=== PATIENT | male | born 1975 | race Caucasian/White ===

== ENCOUNTER 2017-07-20 10:13 | Day surgery (SDC) | payer OTHER, SELFPAY ==
[2017-07-20] VITALS (10 sets, daily range): BP systolic 118–146; BP diastolic 81–93; PULSE 53–92; RESP 11–16; TEMP 36.6–36.8; O2SAT 91–100; BMI 25.6
--- NOTE | 2017-07-20 10:25 | DI.RAD.S_ITS ---
PROCEDURE: XR FINGER LT MIN 2V INDICATIONS: left 2nd digit (pointer!) Drill bit vs finger TECHNIQUE: AP hand, 2 views of the left finger(s) acquired. COMPARISON: None. FINDINGS: Bones: Displaced fracture of distal phalanx of the left index finger. There is palmar angulation of the distal fragment. Soft tissues: Associated soft tissue swelling. IMPRESSION: Distal phalanx fracture of the left index finger Dictated by: Harvey Pace M.D. on 07/20/2017 at 11:12 Approved by: Harvey Pace M.D. on 07/20/2017 at 11:13
[2017-07-20] MEDS: TET,DIPH,PERTUSS(ACELL),VAC/PF 0.5 ML SYRINGE IM (10:58)
--- NOTE | 2017-07-20 11:48 | ED_ITS ---
HPI - Skin/Abscess/Foreign Bdy General Chief complaint: Skin/Abscess/Foreign Body Stated complaint: Pt states cut left index finger Time Seen by Provider: 07/20/17 10:20 Source: patient Mode of arrival: ambulatory Limitations: no limitations History of Present Illness HPI narrative: Healthy 41-year-old male presents to the emergency department with injury to left index finger last night at 10:30 p.m. while using a drill press. His gloved finger got caught in a rotating piece of hardware and injured while rotating peaceful wrapped it around a clamp. His tetanus will be updated today. He attempted to clean it at home but has significant pain. He had breakfast at 6:45 a.m. this morning and coffee on the way to the emergency department Onset (ago): hour(s) Tetanus up to date: no Location: LUE Severity: moderate Quality: stabbing and aching Pain Consistency: constant Relieving factors: immobilization Exacerbating factors: movement Context: none Associated symptoms: denies other symptoms Treatments prior to arrival: bandages Related Data Home Medications Medication Instructions Recorded Confirmed mirtazapine [Remeron] 15 mg PO BEDTIME PRN 07/20/17 07/20/17 tadalafil 10 mg PO DAILY 07/20/17 07/20/17 venlafaxine [Effexor XR] 112.5 mg PO DAILY 07/20/17 07/20/17 Previous Rx's Medication Instructions Recorded cephalexin [Keflex] 500 mg PO QID #40 cap 07/20/17 hydrocodone-acetaminophen [[place]] 1 tab PO Q4H PRN #14 tab 07/20/17 Allergies Allergy/AdvReac Type Severity Reaction Status Date / Time No Known Drug Allergies Allergy Verified 07/20/17 10:19 Review of Systems Review of Systems All systems reviewed & are unremarkable except as noted in HPI and below Constitutional Denies chills, Denies fever(s), Denies lethargy and Denies weakness Eyes Denies change in vision, Denies eye discharge, Denies irritation and Denies loss of vision ENT Ears, Nose, Mouth, and Throat: Denies change in voice, Denies neck pain and Denies sore throat Cardiovascular Denies chest pain, Denies irregular heart rhythm, Denies lightheadedness, Denies palpitations, Denies dyspnea, Denies dyspnea on exertion and Denies orthopnea Respiratory Denies cough, Denies dyspnea, Denies dyspnea on exertion and Denies wheezing Gastrointestinal Gastrointestinal: Denies abdominal pain, Denies change in bowel habits, Denies diarrhea, Denies nausea and Denies vomiting Genitourinary Denies hematuria, Denies flank pain, Denies urinary incontinence and Denies urinary urgency Musculoskeletal Reports joint swelling, Reports limited range of motion and Denies neck pain Integumentary/Breasts Denies pruritus, Denies erythema, Denies rash and Reports wounds Neurologic Denies confusion, Denies loss of vision and Denies weakness Psychiatric Denies anxiety, Denies confusion, Denies depression, Denies homicidal ideation and Denies suicidal ideation Endocrine Denies palpitations Hematologic/Lymphatic Denies easy bruising Allergic/Immunologic Denies wheezing PFSH Family History: Reviewed 07/20/17 by Enmanuel Cotton MD Social History Smoking Status: Former smoker Exam Narrative Exam Narrative: 41-year-old male in mild distress, clutching his left index finger Initial Vital Signs Initial Vital Signs: Vital Signs Temperature 97.9 F 07/20/17 10:16 Pulse Rate 80 07/20/17 10:16 Respiratory Rate 14 07/20/17 10:16 Blood Pressure 134/93 H 07/20/17 10:16 Pulse Oximetry 97 07/20/17 10:16 Const General: cooperative and well developed Nutritional Appearance: well nourished Orientation: alert, awake, oriented x3 and not confused Resp Effort & Inspection: normal respiratory effort, able to speak in complete sentences, no respiratory distress and no use of accessory muscles Auscultation: clear to auscultation bilaterally, no rales, no rhonchi and no wheezes GI Inspection: non-distended Palpation: soft, no hepatosplenomegaly, No guarding, No pulsatile mass and No tender Auscultation: normal bowel sounds Back/Spine/Pelvis Back: No CVA tenderness Cervical Spine: cervical ROM normal and No pain with cervical ROM Thoracic/Lumbar Spine: thoracic and lumbar spine normal to inspection Skin Trauma: laceration (On dorsal aspect of left index finger just distal to the DIP ) Neuro General: alert, awake and oriented x3 Cognition: normal cognition Motor: muscle tone normal throughout Sensory Exam: no sensory deficits noted Extrem Left upper extremity: hand (Obvious injury with deformity to left index finger. Laceration on dorsal aspect of left index finger just distal to the D IP with nail fold involvement. His fingers stuck in flexion distal to the D IP with no ability to passively or actively reduce the deformity. Sensation is intact) Course Orders Ordered: ED Orders 07/20/17 10:25 XR finger LT min 2V Stat 07/20/17 12:19 Basic Metabolic Panel Stat Complete Blood Count AUTO DIFF Stat Hydrocodone Bitart/Acetaminophen ([place] 5/325) 1 tab PO Q30MIN PRN PRN Reason: Mild or moderate pain Fentanyl (Sublimaze) 100 mcg IV Q5MIN PRN PRN Reason: Pain, Severe Lactated Ringer's (Lactated Ringers) 1,000 mls @ 42 mls/hr IV CONT ORLIN Last Infusion: 07/20/17 16:40 Dose: 0 mls/hr Admin: 07/20/17 14:00 Dose: 42 mls/hr Metoclopramide HCl (Reglan) 10 mg IV NOW PRN PRN Reason: Nausea And Vomiting Ondansetron HCl (Zofran) 4 mg IV NOW PRN PRN Reason: Nausea And Vomiting Discontinued Medications Bupivacaine HCl (Sensorcaine 0.5% (Pf)) 30 ml INJ NOW ONE Stop: 07/20/17 15:00 Last Admin: 07/20/17 14:59 Dose: 8 ml Diphtheria/Tetanus/Acell Pertussis (Adacel) 0.5 ml IM .ONCE ONE Stop: 07/20/17 10:23 Last Admin: 07/20/17 10:58 Dose: 0.5 ml Cefazolin Sodium/Dextrose (Ancef) 1 gm in 50 mls @ 100 mls/hr IV NOW ONE Stop: 07/20/17 12:44 Last Infusion: 07/20/17 13:15 Dose: 0 mls/hr Admin: 07/20/17 12:51 Dose: 100 mls/hr Cefazolin Sodium/Dextrose (Ancef) 2 gm in 100 mls @ 200 mls/hr IV NOW ONE Stop: 07/20/17 15:10 Last Infusion: 07/20/17 14:52 Dose: 0 mls/hr Admin: 07/20/17 14:41 Dose: 200 mls/hr Reevaluation(s) Reevaluation #1: Digital block performed on the left index finger after neurovascular status assessed and documented. He has finger was soaked and then scrubbed with chlorhexidine. There is no visualization of extensor tendon. I am unable to reduce the deformity. Call to Orthopedics on-call for bedside evaluation Time: 11:48 Vital Signs - 8 hr 07/20/17 10:16 07/20/17 12:40 07/20/17 14:00 Temperature 97.9 F 98.2 F 97.9 F Pulse Rate 80 53 L 61 Respiratory Rate 14 15 16 Blood Pressure 134/93 H 129/88 H Blood Pressure [Right Arm] 122/86 H Pulse Oximetry 97 98 99 07/20/17 15:41 07/20/17 15:46 07/20/17 15:51 Temperature 98.1 F Pulse Rate 92 H 81 62 Respiratory Rate 11 L 13 14 Blood Pressure 146/81 H 120/84 H 118/81 H Blood Pressure [Right Arm] Pulse Oximetry 91 97 95 07/20/17 15:56 07/20/17 16:07 07/20/17 16:18 Temperature 97.9 F 98.1 F Pulse Rate 71 68 64 Respiratory Rate 16 16 16 Blood Pressure 120/85 H 119/86 H 128/88 H Blood Pressure [Right Arm] Pulse Oximetry 95 97 07/20/17 16:45 Temperature 98.1 F Pulse Rate 66 Respiratory Rate 14 Blood Pressure 130/89 H Blood Pressure [Right Arm] Pulse Oximetry 100 MDM - Skin/Abscess/Foreign Bdy Lab Data Result diagrams: 07/20/17 12:19 07/20/17 12:19 Lab Results 07/20/17 07/20/17 Range/Units 12:19 12:19 WBC 7.3 (4.5-11.0) X10^3/uL RBC 4.79 (4.5-5.9) X10^6/uL Hgb 15.1 (13.5-17.5) g/dL Hct 42.7 (41-53) % MCV 89.1 (80-100) fL MCH 31.4 (26-34) PG MCHC 35.3 (30-36) % RDW 12.7 (11.6-14.8) % Plt Count 189 (150-400) X10^3/uL Neut % (Auto) 70.3 (50-75) % Lymph % (Auto) 15.6 L (25-40) % Wharton % (Auto) 11.7 (3-14) % Eos % (Auto) 1.8 L (2-4) % Baso % (Auto) 0.6 (0-2) % Neut # (Auto) 5100 (5387-3551) /uL Sodium 141 (137-145) mmol/L Potassium 4.3 (3.4-5.1) mmol/L Chloride 103 (98-107) mmol/L Carbon Dioxide 27 (22-32) mmol/L BUN 16 (9-20) mg/dL Creatinine 0.80 (0.66-1.25) mg/dL Estimated GFR > 60.0 (>60) mL/min BUN/Creatinine Ratio 20.0 (6-22) Glucose 89 (70-100) mg/dL Calcium 9.4 (8.4-10.2) mg/dL Imaging Data Finger Xray: Radiologist's impression: PROCEDURE: XR FINGER LT MIN 2V INDICATIONS: left 2nd digit (pointer!) Drill bit vs finger TECHNIQUE: AP hand, 2 views of the left finger(s) acquired. COMPARISON: None. FINDINGS: Bones: Displaced fracture of distal phalanx of the left index finger. There is palmar angulation of the distal fragment. Soft tissues: Associated soft tissue swelling. IMPRESSION: Distal phalanx fracture of the left index finger Dictated by: Harvey Pace M.D. on 07/20/2017 at 11:12 Approved by: Harvey Pace M.D. on 07/20/2017 at 11:13 Discharge Plan Discharge Plan Discharge Problem: Open fracture of distal phalanx of left index finger Patient Disposition: Home, Self-Care Discharge comment: f/u 1 wk Discharge Med Rec/Prescriptions Prescriptions: New cephalexin [Keflex] 500 mg capsule 500 mg PO QID Qty: 40 RF: 0 hydrocodone-acetaminophen [[place]] 5-325 mg tablet 1 tab PO Q4H PRN (Reason: pain) Qty: 14 RF: 0 Continue venlafaxine [Effexor XR] 150 mg Capsule,Extended Release 24hr 112.5 mg PO DAILY RF: 0 mirtazapine [Remeron] 15 mg Tablet 15 mg PO BEDTIME PRN (Reason: Insomnia) RF: 0 tadalafil 10 mg Tablet 10 mg PO DAILY RF: 0 Discharge Orders: Discharge (Order); Ordered 07/20/17 Ordered By: Enmanuel Cotton Provider Discharge Instructions Diet: Diet as Tolerated Activity: keep splint intact Cold/Heat Therapy: ice and elevate Wound Care Dressing: keep dressing intact Visit Report/Discharge Packet Stand Alone Forms: Surgery Discharge Discharge Data Primary Care Provider: Afsaneh Shi Attending Provider: Armando Bryant Discharge Interventions Interventions: ED Discharge Assessment Last Done: 07/20/17 13:53 Discharges patient from system. Discharge Date/Time: 07/20/17 17:10
--- NOTE | 2017-07-20 12:07 | PM.HP.1 ---
History of Present Illness Date Patient Seen: 07/20/17 Time Patient Seen: 12:07 Chief complaint: Pt states cut left index finger Narrative: 41-year-old male right-hand dominant. He injured his hand last night. He was using a drill press. The material got caught and jerked his left hand forward and pulling the index finger. This tore through the glove he was wearing. It was bleeding but he thought he would watch overnight. However it still looked bad today and he came into the emergency room. The finger is painful but not severely so. He is not running any fever or chills. No more active bleeding. He is unable to extend the finger. 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 They gave him a digital nerve block in the emergency room and tried to reduce it but it would not go back into place. Patient History Family & Social History Family History: Reviewed 07/20/17 by Enmanuel Cotton MD Safety & Behavioral: Feels Safe in Current Yes Environment Been Physically Hurt or No Threatened By a Person Tobacco & Substance use: Smoking Status Former smoker alcohol intake frequency 0-2 drinks per day Substance Use Type does not use Meds Home Medications Medication Instructions Recorded Confirmed Type mirtazapine [Remeron] 15 mg PO BEDTIME PRN 07/20/17 07/20/17 History tadalafil 10 mg PO DAILY 07/20/17 07/20/17 History venlafaxine [Effexor XR] 112.5 mg PO DAILY 07/20/17 07/20/17 History Allergies Allergy/AdvReac Type Severity Reaction Status Date / Time No Known Drug Allergies Allergy Verified 07/20/17 10:19 Review of Systems Constitutional Constitutional: Denies fatigue and Reports weakness Cardiovascular Cardiovascular: Denies chest pain and Denies shortness of breath Respiratory Respiratory: Denies dyspnea Musculoskeletal Musculoskeletal: Reports system reviewed; no additional complaints, except as documented Neurologic Neurologic: Reports weakness Psychiatric Psychiatric: Reports depression Endocrine Endocrine: Denies fatigue Hematologic/Lymphatic Hematologic/Lymphatic: Denies easy bleeding Exam Vital Signs (past 8 hours): Vital Signs - 8 hr 07/20/17 10:16 Temperature 97.9 F Pulse Rate 80 Respiratory Rate 14 Blood Pressure 134/93 H Pulse Oximetry 97 Pulse Oximetry 97 Oxygen Delivery Method Room Air Const Orientation: alert and oriented x3 Resp Auscultation: clear to auscultation bilaterally Cardio Rate: regular rate Rhythm: regular rhythm Extrem Other: Transverse laceration across the dorsum of the left index DIP joint. The base of the nail is protruding proximally. He is able to actively flex without difficulty but unable to extend his finger. Decreased sensation from his digital nerve block but intact throughout. Good capillary refill distally. Objective Imaging left hand/index finger xray: My impression: Fracture through the very proximal aspect of the distal phalanx of the left index finger. The fracture is dislocated dorsally and volarly angulated. Assessment & Plan Plan: Assessment/Plan Narrative: There is an irreducible dislocation and most likely some soft tissue blocking the reduction. Most likely has an extensor tendon injury with a mallet finger. He has had an open fracture since last night. I feel that should be treated today. I recommend irrigation debridement of the open fracture as well as reduction and pinning of the distal phalanx fracture. I do not know if there is enough proximal bone to get adequate fixation with pins across just the fracture site. He may need a pinning across the DIP joint itself. If there is enough tendon that we can repair with suture we will do this. Otherwise, if it is mostly bony, this should heal up fine in the reduced position. Risks and benefits of surgery been discussed including but not limited to medical risks with heart attack, stroke, , infection, bleeding, scarring, stiffness, loss of motion, laxity, nonunion, malunion, loss of function, need for further surgery. All questions been answered and the consent obtained. Time Spent With Patient Time with patient: less than 15 minutes
[2017-07-20 12:27] LABS: Add Manual Diff / Slide Review NO; Basophils Percent Auto 0.6 % (0-2); Eosinophils Percent Auto 1.8 % (2-4); Hematocrit 42.7 % (41-53); Hemoglobin 15.1 g/dL (13.5-17.5); Lymphocytes Percent Auto 15.6 % (25-40); Mean Corpuscular HGB Conc 35.3 % (30-36); Mean Corpuscular Hemoglobin 31.4 PG (26-34); Mean Corpuscular Volume 89.1 fL (80-100); Monocytes Percent Auto 11.7 % (3-14); Neutrophils Absolute Auto 5100 /uL (3000-5900); Neutrophils Percent Auto 70.3 % (50-75); Platelet Count 189 X10^3/uL (150-400); Red Blood Cell Count 4.79 X10^6/uL (4.5-5.9); Red Cell Distribution Width 12.7 % (11.6-14.8); White Blood Cell Count 7.3 X10^3/uL (4.5-11.0)
[2017-07-20 12:39] LABS: Blood Urea Nitrogen 16 mg/dL (9-20); Calcium 9.4 mg/dL (8.4-10.2); Carbon Dioxide 27 mmol/L (22-32); Chloride 103 mmol/L (98-107); Estimated Glomerular Filt Rate > 60.0 mL/min (>60); Glucose 89 mg/dL (70-100); HEMOLYSIS < 15 (0-50); Potassium 4.3 mmol/L (3.4-5.1); Sodium 141 mmol/L (137-145)
[2017-07-20] MEDS: CEFAZOLIN 1 GM/50 ML FROZ.PIGGY IV (12:51)
--- NOTE | 2017-07-20 13:40 | PC.NURSE ---
Dressing to l index finger of telfa, 4x4 and coban to protect until surgery
[2017-07-20] MEDS: LACTATED RINGERS 1,000 ML 42 ML IV (14:00)
[2017-07-20] MEDS: CEFAZOLIN 2 GM/100 ML FROZ.PIGGY IV (14:41)
[2017-07-20] MEDS: BUPIVACAINE 0.5% (PF) 30 ML VIAL INJ (14:59)
--- NOTE | 2017-07-20 15:02 | SUR.OPER ---
Supine on padded OR bed, head on pillow, right arm secured on padded arm boards at <90 degrees abduction, legs uncrossed, safety belt at thigh, tape over blanket over lower legs. left arm on sterile armboard
--- NOTE | 2017-07-20 15:36 | PM.OP.1 ---
Operative Date/Time/Diagnoses - Date of procedure: 07/20/17 Time of procedure: 15:36 Pre-op diagnosis: Left index open distal phalanx fracture Left index mallet finger Post-op diagnosis: same Procedure & Clinicians Procedure: irrigation and debridement of left open distal phalanx fracture of the index finger Percutaneous pin fixation of left index mallet finger Same procedure as scheduled: Yes Indications: 41-year-old male with an open distal phalanx/mallet finger of the index finger. It is felt that he would require urgent debridement and fixation for the open fracture. Risks and benefits of surgery discussed the appropriate consents were obtained. Surgeon: Enmanuel Cotton Click Yes if Unassisted: Yes Anesthesia Type: General Operative Notes Findings: None Closure Type: primary Specimen(s): none sent Implants & Drains: K wire Estimated Blood Loss (mL): 1 Procedure in detail: Patient was brought to the operating room and intubated on the table. Time-out was performed. He had been given antibiotics in the emergency room but new preoperative antibiotics were given. Attention was turned towards the well-marked left hand. A well-padded tourniquet was placed over the left arm, but never used. The left arm was prepped and draped in the standard sterile fashion. A digital block was performed with 0.5% plain Marcaine. We distracted open across the fracture site and exposed this. This was sharply debrided with a curette and then copiously irrigated until it was clean. The fracture was reduced by using an elevator and putting it back into place. This was confirmed under fluoroscopy. We then open the fracture back up and drove a K-wire through the proximal fragment back from distal proximal. The fracture was again reduced and confirmed under x-ray and the K-wire was advanced distally until it was at the next cortex. I did not have room to get another K-wire into the mallet finger fragment. For adequate stability, I then drove a K-wire from the tip of the finger percutaneously going proximally back through the distal phalanx across the joint into the middle phalanx. This was stable at this point. Final x-rays were taken. The wound was irrigated. The skin was closed with nylon suture. A sterile dressing was placed. He was then placed into a well-padded aluminum splint. He was extubated brought to recovery room with no complications. Complications: none Condition: stable Disposition: PACU Plan for aftercare: Outpatient surgery. Discharged home on Keflex and Vicodin. Return for wound check in 1 week.
--- NOTE | 2017-07-20 15:39 | P.OP_ITS ---
Operative Date/Time/Diagnoses - Date of procedure: 07/20/17 Time of procedure: 15:36 Pre-op diagnosis: Left index open distal phalanx fracture Left index mallet finger Post-op diagnosis: same Procedure & Clinicians Procedure: irrigation and debridement of left open distal phalanx fracture of the index finger Percutaneous pin fixation of left index mallet finger Same procedure as scheduled: Yes Indications: 41-year-old male with an open distal phalanx/mallet finger of the index finger. It is felt that he would require urgent debridement and fixation for the open fracture. Risks and benefits of surgery discussed the appropriate consents were obtained. Surgeon: Enmanuel Cotton Click Yes if Unassisted: Yes Anesthesia Type: General Operative Notes Findings: None Closure Type: primary Specimen(s): none sent Implants & Drains: K wire Estimated Blood Loss (mL): 1 Procedure in detail: Patient was brought to the operating room and intubated on the table. Time-out was performed. He had been given antibiotics in the emergency room but new preoperative antibiotics were given. Attention was turned towards the well-marked left hand. A well-padded tourniquet was placed over the left arm, but never used. The left arm was prepped and draped in the standard sterile fashion. A digital block was performed with 0.5% plain Marcaine. We distracted open across the fracture site and exposed this. This was sharply debrided with a curette and then copiously irrigated until it was clean. The fracture was reduced by using an elevator and putting it back into place. This was confirmed under fluoroscopy. We then open the fracture back up and drove a K-wire through the proximal fragment back from distal proximal. The fracture was again reduced and confirmed under x-ray and the K-wire was advanced distally until it was at the next cortex. I did not have room to get another K- wire into the mallet finger fragment. For adequate stability, I then drove a K- wire from the tip of the finger percutaneously going proximally back through the distal phalanx across the joint into the middle phalanx. This was stable at this point. Final x-rays were taken. The wound was irrigated. The skin was closed with nylon suture. A sterile dressing was placed. He was then placed into a well-padded aluminum splint. He was extubated brought to recovery room with no complications. Complications: none Condition: stable Disposition: PACU Plan for aftercare: Outpatient surgery. Discharged home on Keflex and Vicodin. Return for wound check in 1 week.
--- NOTE | 2017-07-20 16:30 | SUR.PHASEII ---
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 l hand iced and elevated on pillow, still w/o pain and all assesments are unchanged.
--- NOTE | 2017-07-20 16:37 | SUR.HOLD ---
late entry: brought pt to opd from er, second pt from or soon came to pacu, report to lupillo on this pt and assumed care of other pt in pacu.
--- NOTE | 2017-07-20 17:30 | SUR.PHASEII ---
arrived, discharge instructions discussed with and pt all voiced an understanding, index finger dressing c/d/i and pt denied any pain. pt left unit when ready and in stable condition.
== END 2017-07-20 17:12 | disposition home or self-care (01) ==
PROVIDERS: Orthopaedic Surgery; Family Provider Pediatrics; PCP Pediatrics; Visit Provider Emergency Medicine
PROC: (CPT 26765; principal; 2017-07-20 12:45)
DX: S62.631B Displaced fracture of distal phalanx of left index finger, initial encounter for open fracture (principal); M20.012 Mallet finger of left finger(s); Z23 Encounter for immunization; W31.1XXA Contact with metalworking machines, initial encounter
CPT/HCPCS: 26765; 26432; 11011; 73140; 80048; 85025; 90715; J0330; J0690; J1100; J2250; J2405; J2704; J3010